=== PATIENT | female | born 1975 | race Caucasian/White ===

== ENCOUNTER 2018-01-13 12:23 | Emergency (ER) | payer MEDICAID ==
[~2018-01-13] VITALS: Ht 157.5 cm; Wt 79.0 kg
[2018-01-13] MEDS ORDERED: KETOROLAC 30MG/ML VIAL IM ONE (13:45)
[2018-01-13] MEDS ORDERED: METHOCARBAMOL 500MG TABLET PO ONE (16:30)
[2018-01-13 16:45] VITALS: BP 132/79
== END 2018-01-13 16:54 | disposition home or self-care (01) ==
LOC: ER 12:23
DX: S29.012A Strain of muscle and tendon of back wall of thorax, initial encounter (principal); X58.XXXA Exposure to other specified factors, initial encounter; Y93.89 Activity, other specified; Y92.89 Other specified places as the place of occurrence of the external cause; Y99.8 Other external cause status
CPT/HCPCS: 81025; 96372; 99283; J1885

== ENCOUNTER 2020-07-31 15:24 | Emergency (ER) | payer MEDICAID ==
[~2020-07-31] VITALS: Ht 160 cm; Wt 59.0 kg
[2020-07-31] MEDS ORDERED: ONDANSETRON 4MG ODT PO STA (16:18)
[2020-07-31] MEDS ORDERED: LORAZEPAM 0.5MG TABLET PO ONE (16:30)
[2020-07-31 17:30] VITALS: BP 131/78
[2020-07-31] MEDS ORDERED: ACETAMINOPHEN 325MG TABLET PO ONE (17:45)
== END 2020-07-31 18:35 | disposition home or self-care (01) ==
LOC: ER 15:52
DX: U07.1 COVID-19 (principal); R03.0 Elevated blood-pressure reading, without diagnosis of hypertension
CPT/HCPCS: 71045; 99284; C9803; Q0162; U0003

== ENCOUNTER 2021-01-02 18:11 | Inpatient (IN) | payer MEDICAID ==
[~2021-01-02] VITALS: Ht 157.5 cm; Wt 76.2 kg
[2021-01-02 20:45] LABS: BASOPHILS % 0.4 % (0.0-2.0); EOSINOPHILS % 0.6 % (0.0-5.0); LYMPHOCYTES % 22.5 % (20.0-50.0); MEAN CORPUSCULAR HEMOGLOBIN 27.6 pg (28.0-32.0); MEAN CORPUSCULAR VOLUME 82.6 fL (81.0-99.0); NEUTROPHILS % 66.5 % (40.0-76.0); PLATELET 199 x1000/uL (130-400); RED CELL DISTRIBUTION WIDTH 16.7 % (11.6-14.6)
[2021-01-02 20:57] LABS: CHLORIDE 108 mEq/L (98-107)
[2021-01-02 21:05] LABS: CLARITY URINE TURBID (CLEAR); COLOR URINE DK YELLOW (YELLOW); KETONES URINE TRACE (NEGATIVE); LEUKOCYTE ESTERASE URINE 3+ (NEGATIVE); NITRITE URINE POSITIVE (NEGATIVE); OCCULT BLOOD URINE 3+ (NEGATIVE); PH URINE 5.5 (4.5-8.0); PROTEIN URINE 1+ (NEGATIVE); SPECIFIC GRAVITY URINE 1.025 (1.005-1.030); UROBILINOGEN URINE 0.2 E.U./dL (0.2-1.0)
[2021-01-02 21:10] LABS: B-HCG QUANTITATIVE < 1 mIU/mL (<3)
[2021-01-02] MEDS ORDERED: CEFTRIAXONE 2 G PREMIX 50 ML IV ONE (22:00)
[2021-01-02] MEDS ORDERED: HYDROCODONE/ACETAMINOPHEN 5/325MG TABLET PO PRN (23:30)
[2021-01-02] MEDS ORDERED: ONDANSETRON HCL 4MG/2ML INJ IV PRN (23:30)
[2021-01-02] MEDS ORDERED: DOCUSATE SODIUM 100MG CAPSULE PO PRN (23:30)
[2021-01-02] MEDS ORDERED: ACETAMINOPHEN 325MG TABLET PO PRN (23:30)
[2021-01-02] MEDS ORDERED: GUAIFENESIN 200MG/10ML SUGAR FREE UDC PO PRN (23:30)
[2021-01-03] MEDS: SODIUM CHLORIDE 0.45% 1,000 ML IV SCH ×2 (00:01→13:08)
[2021-01-03 05:23] LABS: BASOPHILS % 0.3 % (0.0-2.0); EOSINOPHILS % 0.5 % (0.0-5.0); HEMATOCRIT. 31.1 % (36.0-48.0); HEMOGLOBIN. 10.5 g/dL (12.0-16.0); LYMPHOCYTES % 24.3 % (20.0-50.0); MEAN CORPUSCULAR HEMOGLOBIN 27.4 pg (28.0-32.0); MEAN CORPUSCULAR VOLUME 81.5 fL (81.0-99.0); MONOCYTES % 10.1 % (2.0-8.0); NEUTROPHILS % 64.8 % (40.0-76.0); PLATELET 176 x1000/uL (130-400); RED BLOOD CELL COUNT 3.82 mill/uL (4.2-5.4); RED CELL DISTRIBUTION WIDTH 16.4 % (11.6-14.6)
[2021-01-03 05:35] LABS: CHLORIDE 108 mEq/L (98-107)
[2021-01-03 09:00] VITALS: BP 99/58
[2021-01-03] MEDS ORDERED: DIVA-18 PO (11:16)
[2021-01-03] MEDS ORDERED: QUET400T53 PO (11:16)
[2021-01-03 12:00] VITALS: BP 96/61
[2021-01-03] MEDS: CEFTRIAXONE 1,000 MG in DEXTROSE 5% WATER 50 ML IV SCH (13:06)
[2021-01-03 16:00] VITALS: BP 107/62
[2021-01-03 20:00] VITALS: BP 110/61
[2021-01-03] MEDS ORDERED: DIVALPROEX SODIUM 500MG DR TABLET PO SCH (21:00)
[2021-01-03] MEDS ORDERED: QUETIAPINE FUMARATE 50MG TABLET PO SCH (21:00)
[2021-01-03] MEDS ORDERED: CEFTRIAXONE 1,000 MG in DEXTROSE 5% WATER 50 ML IV SCH (23:00)
[2021-01-04] MEDS: SODIUM CHLORIDE 0.45% 1,000 ML IV SCH ×2 (02:49→14:54)
[2021-01-04 04:00] VITALS: BP 105/60
[2021-01-04 08:00] VITALS: BP 124/75
[2021-01-04 12:00] VITALS: BP 130/68
[2021-01-04 13:13] VITALS: BP 130/68
[2021-01-04] MEDS: CEFTRIAXONE 1,000 MG in DEXTROSE 5% WATER 50 ML IV SCH (14:53)
== END 2021-01-04 16:05 | disposition home or self-care (01) | DRG 463 ==
LOC: ER 18:11 → 8WST 22:47 → ENRESERV 01-03 07:48
PROVIDERS: ADMIT Hospitalist; ATTEND Hospitalist
DX: N39.0 Urinary tract infection, site not specified (principal); F29 Unspecified psychosis not due to a substance or known physiological condition; N93.9 Abnormal uterine and vaginal bleeding, unspecified
CPT/HCPCS: 36415; 74176; 76830; 76856; 80053; 81003; 83605; 84702; 85025; 86850; 86900; 87077; 87186; 99285; J0696; J7060

== ENCOUNTER 2021-06-11 23:18 | Emergency (ER) | payer SELFPAY ==
[~2021-06-11] VITALS: Ht 165.1 cm; Wt 73.0 kg
[~2021-06-11 23:18] MED LIST: DIVA-18 PO; QUET400T53 PO
[2021-06-11 23:49] VITALS: BP 168/96
[2021-06-12] MEDS ORDERED: ACETAMINOPHEN 325MG TABLET PO ONE (00:30)
[2021-06-12] MEDS ORDERED: KETOROLAC 60MG/2ML VIAL IM ONE (00:45)
[2021-06-12 01:29] LABS: BASOPHILS % 0.3 % (0.0-2.0); EOSINOPHILS % 0.5 % (0.0-5.0); HEMATOCRIT. 33.2 % (36.0-48.0); LYMPHOCYTES % 18.4 % (20.0-50.0); MEAN CORPUSCULAR HEMOGLOBIN 27.2 pg (28.0-32.0); MEAN CORPUSCULAR VOLUME 82.3 fL (81.0-99.0); MEAN PLATELET VOLUME 7.8 fl (7.4-10.4); MONOCYTES % 11.2 % (2.0-8.0); NEUTROPHILS % 69.6 % (40.0-76.0); PLATELET 205 x1000/uL (130-400); RED BLOOD CELL COUNT 4.04 mill/uL (4.2-5.4)
[2021-06-12 01:54] LABS: CHLORIDE 109 mEq/L (98-107)
[2021-06-12 03:51] LABS: CLARITY URINE CLOUDY (CLEAR); COLOR URINE YELLOW (YELLOW); KETONES URINE TRACE (NEGATIVE); LEUKOCYTE ESTERASE URINE NEGATIVE (NEGATIVE); NITRITE URINE NEGATIVE (NEGATIVE); OCCULT BLOOD URINE NEGATIVE (NEGATIVE); PROTEIN URINE TRACE (NEGATIVE); SPECIFIC GRAVITY URINE 1.029 (1.005-1.030)
== END 2021-06-12 04:41 | disposition home or self-care (01) ==
LOC: ER 23:18
DX: R43.8 Other disturbances of smell and taste (principal); R19.7 Diarrhea, unspecified; Z20.822 Contact with and (suspected) exposure to COVID-19; D72.819 Decreased white blood cell count, unspecified; R11.2 Nausea with vomiting, unspecified; R94.31 Abnormal electrocardiogram [ECG] [EKG]; F41.9 Anxiety disorder, unspecified; S39.012A Strain of muscle, fascia and tendon of lower back, initial encounter; X58.XXXA Exposure to other specified factors, initial encounter; Y93.89 Activity, other specified; Y92.89 Other specified places as the place of occurrence of the external cause
CPT/HCPCS: 36415; 80053; 81003; 85025; 87086; 93005; 99284; C9803; U0003; U0005